=== PATIENT | male | born 1940 | race Hispanic/Latino ===

== ENCOUNTER 2025-02-18 10:48 | Emergency (ER) | payer MEDICARE ==
[~2025-02-18] VITALS: Ht 175.3 cm; Wt 76.7 kg
[2025-02-18 14:07] LABS: BASOPHILS % 0.3 % (0.0-1.0); EOSINOPHILS % 2.4 % (0.0-6.0); LYMPHOCYTES % 17.7 % (18.0-39.1); MONOCYTES % 7.4 % (4.4-11.3); NEUTROPHILS % 72.1 % (38.7-80.0); RED CELL DISTRIBUTION WIDTH 12.1 % (11.7-14.4)
[2025-02-18 14:20] LABS: INR 1.01
[2025-02-18 14:27] LABS: EST GLOMERULAR FILTRATION RATE 81.0 ML/MIN (>=60)
[2025-02-18 17:49] VITALS: PULSE 82; RESP 16; TEMP 98.2; O2SAT 100
== END 2025-02-18 17:50 | disposition home or self-care (01) ==
LOC: ER 11:58
DX: G47.00 Insomnia, unspecified (principal)
CPT/HCPCS: 36415; 70450; 71045; 80053; 84484; 85025; 85610; 85730; 99283